=== PATIENT | male | born 1955 | race Caucasian/White ===

== ENCOUNTER 2024-10-15 20:44 | Inpatient (IN) | payer OTHER ==
[2024-10-16] MEDS ORDERED: Acetaminophen 325 MG TAB PO PRN (01:52)
[2024-10-16] MEDS ORDERED: Senokot S 8.6-50 MG TAB PO PRN (01:52)
[2024-10-16 02:13] VITALS: BMI 28.8
[2024-10-16] MEDS: predniSONE 20 MG TAB PO SCH (02:40)
[2024-10-16] MEDS: Lidocaine 2% Viscous Solution 10 ML, Aluminum & Magnesium Hydroxide 30 ML SSW SCH (02:41)
[2024-10-16] MEDS: Morphine 2 MG/ML VIAL SLOW IVP SCH (02:41)
[2024-10-16 04:35] LABS: #Basophils 0.02 10x3/uL (0.0-0.2); #Eosinophils 0.01 10x3/uL (0.0-0.5); #Monocytes 0.98 10x3/uL (0.0-1.1); %Basophils 0.2 % (0.0-2.0); %Eosinophils 0.1 % (0.0-6.0); %Lymphocytes 4.9 % (18.0-47.0); %Monocytes 9.5 % (0.0-10.0); %Neutrophils 84.8 % (40.0-75.0); Hemoglobin 13.4 g/dL (13.5-17.5); Mean Corpuscular HGB CONC 34.4 g/dL (32.0-36.0); Mean Corpuscular Hemoglobin 33.3 pg (27.0-33.0); Mean Corpuscular Volume 96.8 fL (81.2-95.1); Mean Platelet Volume 12.3 fL (7.4-10.4); Platelet Count 60 10x3/uL (150-450); RBC Distribution Width 14.3 % (11.5-14.5); Red Blood Cell (RBC) Count 4.03 10x6/uL (4.32-5.72); White Blood Cell (WBC) Count 10.2 10x3/uL (3.5-10.5)
[2024-10-16 04:44] LABS: Anion Gap 17 mmol/L (10-20); BUN (Urea Nitrogen) 23 mg/dL (8.4-25.7); Calc. Creatinine Clearance 53 mL/min (70-130); Calcium 8.9 mg/dL (7.8-10.44); Carbon Dioxide 18 mmol/L (23-31); Chloride 103 mmol/L (98-107); Estimated GFR 41; Glucose 124 mg/dL (80-115); Magnesium 1.7 mg/dL (1.6-2.6); Potassium 4.4 mmol/L (3.5-5.1); Sodium 134 mmol/L (136-145)
[2024-10-16] MEDS: Sodium Chloride 0.9% 500 ML IV SCH (06:29)
[2024-10-16] MEDS ORDERED: Furosemide 40 MG TAB PO SCH (07:30)
[2024-10-16] MEDS ORDERED: Spironolactone 25 MG TAB PO SCH (08:00)
[2024-10-16] MEDS: Mometasone 200 MCG/Formoterol 5 MCG 60 PUFF INHALER INH SCH (08:36)
[2024-10-16] MEDS: Pantoprazole DR 40 MG TAB PO SCH (08:57)
[2024-10-16] MEDS: Carvedilol 6.25 MG TAB PO SCH (08:57)
[2024-10-16] MEDS: Potassium Chloride 20 MEQ TAB PO SCH (08:57)
[2024-10-16] MEDS: Lactulose 20 GM (30 mL) UDCUP PO SCH (08:57)
[2024-10-16] MEDS: Oseltamivir 75 MG CAP PO SCH (08:57)
[2024-10-16] MEDS: Folic Acid 1 MG TAB PO SCH (08:58)
[2024-10-16] MEDS: traMADol HCl 50 MG TAB PO PRN (08:58)
[2024-10-16 11:40] LABS: Anion Gap 12 mmol/L (10-20); BUN (Urea Nitrogen) 27 mg/dL (8.4-25.7); Calc. Creatinine Clearance 56 mL/min (70-130); Calcium 8.6 mg/dL (7.8-10.44); Carbon Dioxide 22 mmol/L (23-31); Chloride 104 mmol/L (98-107); Estimated GFR 44; Glucose 181 mg/dL (80-115); Potassium 4.8 mmol/L (3.5-5.1); Sodium 133 mmol/L (136-145)
[2024-10-16] MEDS: ADMIXTURE FEE IVPB SCH (12:38)
[2024-10-16] MEDS: VANCOMYCIN IVPB SCH (12:38)
[2024-10-16] MEDS: SODIUM CHLORIDE IVPB SCH (12:38)
[2024-10-16] MEDS: Morphine 4 MG/ML VIAL SLOW IVP SCH (15:52)
[2024-10-16] MEDS: Cyclobenzaprine 10 MG TAB PO SCH (20:50)
[2024-10-16] MEDS: Calcium Carbonate 500 MG ChewTAB PO PRN (23:57)
[2024-10-17 04:26] LABS: Albumin 2.7 g/dL (3.4-4.8); Anion Gap 16 mmol/L (10-20); BUN (Urea Nitrogen) 38 mg/dL (8.4-25.7); BUN/Creatinine Ratio 24.36; Calc. Creatinine Clearance 60 mL/min (70-130); Calcium 9.3 mg/dL (7.8-10.44); Carbon Dioxide 21 mmol/L (23-31); Chloride 105 mmol/L (98-107); Estimated GFR 48; Glucose 126 mg/dL (80-115); Phosphorus 3.4 mg/dL (2.3-4.7); Potassium 4.8 mmol/L (3.5-5.1); Sodium 137 mmol/L (136-145)
[2024-10-17 04:27] LABS: #Basophils 0.02 10x3/uL (0.0-0.2); #Eosinophils 0.01 10x3/uL (0.0-0.5); #Monocytes 1.31 10x3/uL (0.0-1.1); #Neutrophils 7.09 10x3/uL (1.5-8.4); %Basophils 0.2 % (0.0-2.0); %Eosinophils 0.1 % (0.0-6.0); %Lymphocytes 8.4 % (18.0-47.0); %Monocytes 14.1 % (0.0-10.0); %Neutrophils 76.6 % (40.0-75.0); Hematocrit 34.3 % (38.8-50.0); Hemoglobin 11.7 g/dL (13.5-17.5); Mean Corpuscular HGB CONC 34.1 g/dL (32.0-36.0); Mean Corpuscular Hemoglobin 33.1 pg (27.0-33.0); Mean Corpuscular Volume 96.9 fL (81.2-95.1); Mean Platelet Volume 12.9 fL (7.4-10.4); Platelet Count 60 10x3/uL (150-450); RBC Distribution Width 14.1 % (11.5-14.5); Red Blood Cell (RBC) Count 3.54 10x6/uL (4.32-5.72); White Blood Cell (WBC) Count 9.3 10x3/uL (3.5-10.5)
[2024-10-17] MEDS ORDERED: VANCOMYCIN 1.25 GM/250 ML BAG 1.25 GM in Premix 1 BAG IVPB SCH (10:30)
[2024-10-17] MEDS: Morphine 4 MG/ML VIAL SLOW IVP SCH ×2 (10:37→13:06)
[2024-10-17] MEDS: Sodium Chloride 0.9% 500 ML IV SCH (10:44)
[2024-10-17] MEDS: Ondansetron PF 4 MG/2 ML Vial IVP PRN (10:44)
[2024-10-17] MEDS: Vancomycin 1 GM in Sodium Chloride 0.9% 250 ML 250 ML IVPB SCH (14:58)
[2024-10-17] MEDS: HYDROcodone/Acetaminophen 10/325 mg Tablet PO SCH (20:19)
[2024-10-18 04:19] LABS: Anion Gap 13 mmol/L (10-20); BUN (Urea Nitrogen) 39 mg/dL (8.4-25.7); Calc. Creatinine Clearance 76 mL/min (70-130); Calcium 8.9 mg/dL (7.8-10.44); Carbon Dioxide 19 mmol/L (23-31); Chloride 105 mmol/L (98-107); Estimated GFR 64; Glucose 95 mg/dL (80-115); Potassium 4.8 mmol/L (3.5-5.1); Sodium 132 mmol/L (136-145)
[2024-10-18 04:28] LABS: Vancomycin, Random 19.5 ug/mL (See Comment)
[2024-10-18 04:29] LABS: #Basophils 0.05 10x3/uL (0.0-0.2); #Eosinophils 0.16 10x3/uL (0.0-0.5); #Monocytes 1.36 10x3/uL (0.0-1.1); #Neutrophils 8.66 10x3/uL (1.5-8.4); %Basophils 0.4 % (0.0-2.0); %Eosinophils 1.4 % (0.0-6.0); %Lymphocytes 7.4 % (18.0-47.0); %Monocytes 12.2 % (0.0-10.0); %Neutrophils 77.8 % (40.0-75.0); Hematocrit 36.2 % (38.8-50.0); Hemoglobin 12.2 g/dL (13.5-17.5); Mean Corpuscular HGB CONC 33.7 g/dL (32.0-36.0); Mean Corpuscular Hemoglobin 32.8 pg (27.0-33.0); Mean Corpuscular Volume 97.3 fL (81.2-95.1); Red Blood Cell (RBC) Count 3.72 10x6/uL (4.32-5.72); White Blood Cell (WBC) Count 11.2 10x3/uL (3.5-10.5)
[2024-10-18] MEDS: Benzonatate 100 MG CAP PO PRN (04:47)
[2024-10-18 05:03] LABS: Mean Platelet Volume 12.4 fL (7.4-10.4); Platelet Count 63 10x3/uL (150-450)
[2024-10-18] MEDS: Ipratropium/Albuterol 3 ML NEB NEB PRN (09:18)
[2024-10-18] MEDS: Morphine 4 MG/ML VIAL SLOW IVP SCH (13:01)
[2024-10-18] MEDS: Methocarbamol 500 MG TAB PO SCH (15:01)
[2024-10-18] MEDS: VANCOMYCIN 1.25 GM/250 ML BAG 1.25 GM in Premix 1 BAG IVPB SCH (15:01)
[2024-10-18] MEDS: Famotidine 20 MG TAB PO PRN (20:49)
[2024-10-18] MEDS: traMADol HCl 50 MG TAB PO PRN (20:51)
[2024-10-19 04:47] LABS: Anion Gap 13 mmol/L (10-20); BUN (Urea Nitrogen) 30 mg/dL (8.4-25.7); Calc. Creatinine Clearance 78 mL/min (70-130); Calcium 8.6 mg/dL (7.8-10.44); Carbon Dioxide 21 mmol/L (23-31); Chloride 104 mmol/L (98-107); Estimated GFR 66; Glucose 90 mg/dL (80-115); Potassium 4.7 mmol/L (3.5-5.1); Sodium 133 mmol/L (136-145)
[2024-10-19 04:54] LABS: #Basophils 0.06 10x3/uL (0.0-0.2); #Eosinophils 0.17 10x3/uL (0.0-0.5); #Monocytes 1.52 10x3/uL (0.0-1.1); #Neutrophils 7.13 10x3/uL (1.5-8.4); %Basophils 0.6 % (0.0-2.0); %Eosinophils 1.7 % (0.0-6.0); %Lymphocytes 10.2 % (18.0-47.0); %Monocytes 15.1 % (0.0-10.0); %Neutrophils 70.7 % (40.0-75.0); Hemoglobin 11.8 g/dL (13.5-17.5); Mean Corpuscular HGB CONC 34.7 g/dL (32.0-36.0); Mean Corpuscular Hemoglobin 32.7 pg (27.0-33.0); Mean Corpuscular Volume 94.2 fL (81.2-95.1); Mean Platelet Volume 12.2 fL (7.4-10.4); Platelet Count 64 10x3/uL (150-450); RBC Distribution Width 13.8 % (11.5-14.5); Red Blood Cell (RBC) Count 3.61 10x6/uL (4.32-5.72); White Blood Cell (WBC) Count 10.1 10x3/uL (3.5-10.5)
[2024-10-19] MEDS: Ketorolac Tromethamine 30 MG (1 mL) VIAL IVP SCH (05:55)
[2024-10-19] MEDS ORDERED: Magnevist 469MG/ML 20 ML VIAL ONE ×2 (10:11)
[2024-10-19] MEDS: Morphine 4 MG/ML VIAL SLOW IVP SCH (15:48)
[2024-10-19 16:19] VITALS: BP 149/72; TEMP 97.4
== END 2024-10-19 19:09 | disposition still patient (30) | DRG 871 ==
LOC: EEVIPCON 10-16 01:22 → CSHTELE 10-16 01:22 → OBSVTOIN 10-16 11:25
PROVIDERS: ADMIT Student in an Organized Health Care Education/Training Program; ATTEND Internal Medicine
DX: A41.02 Sepsis due to Methicillin resistant Staphylococcus aureus (principal); J10.08 Influenza due to other identified influenza virus with other specified pneumonia; J96.01 Acute respiratory failure with hypoxia; J15.212 Pneumonia due to Methicillin resistant Staphylococcus aureus; K76.6 Portal hypertension; A18.01 Tuberculosis of spine; E87.20 Acidosis, unspecified; J90 Pleural effusion, not elsewhere classified; J45.909 Unspecified asthma, uncomplicated; I11.0 Hypertensive heart disease with heart failure; I50.9 Heart failure, unspecified; K74.60 Unspecified cirrhosis of liver; K21.9 Gastro-esophageal reflux disease without esophagitis; D69.59 Other secondary thrombocytopenia; Z86.19 Personal history of other infectious and parasitic diseases; Z79.899 Other long term (current) drug therapy
CPT/HCPCS: 36415; 71250; 72157; 72158; 80048; 80069; 80202; 83735; 85025; 87040; 87077; 87149; 87186; 93306; 94640; 94664; 94760; 94762; 96374; G0378; J1885; J2272; J2405; J3370; J7030; J7050; J7512; J7620

== ENCOUNTER 2024-10-30 13:21 | Emergency (ER) | payer OTHER ==
[2024-10-30] MEDS ORDERED: Cefepime 2 GM VIAL ONE (13:44)
[2024-10-30] MEDS ORDERED: Ondansetron PF 4 MG/2 ML Vial ONE (13:44)
[2024-10-30] MEDS ORDERED: Morphine 4 MG/ML VIAL ONE ×2 (13:44→14:32)
[2024-10-30] MEDS ORDERED: Vancomycin 2.5 GM in Sodium Chloride 0.9% 500 ML IVPB SCH (14:00)
[2024-10-30 14:03] LABS: #Basophils 0.12 10x3/uL (0.0-0.2); #Eosinophils 0.18 10x3/uL (0.0-0.5); #Monocytes 1.15 10x3/uL (0.0-1.1); #Neutrophils 7.82 10x3/uL (1.5-8.4); %Basophils 1.1 % (0.0-2.0); %Eosinophils 1.7 % (0.0-6.0); %Lymphocytes 12.2 % (18.0-47.0); %Monocytes 10.8 % (0.0-10.0); %Neutrophils 73.7 % (40.0-75.0); Hematocrit 37.7 % (38.8-50.0); Hemoglobin 12.7 g/dL (13.5-17.5); Mean Corpuscular HGB CONC 33.7 g/dL (32.0-36.0); Mean Corpuscular Hemoglobin 31.4 pg (27.0-33.0); Mean Corpuscular Volume 93.1 fL (81.2-95.1); Mean Platelet Volume 10.5 fL (7.4-10.4); Platelet Count 219 10x3/uL (150-450); RBC Distribution Width 13.1 % (11.5-14.5); Red Blood Cell (RBC) Count 4.05 10x6/uL (4.32-5.72); White Blood Cell (WBC) Count 10.6 10x3/uL (3.5-10.5)
[2024-10-30 14:13] LABS: INR-International Normal Ratio 1.3; PTT 38.9 sec (22.0-33.0); Prothrombin Time 13.5 sec (9.5-12.1)
[2024-10-30 14:16] LABS: ALT (SGPT) 29 U/L (8-55); AST (SGOT) 41 U/L (5-34); Albumin 3.7 g/dL (3.4-4.8); Alkaline Phosphatase 112 U/L (40-110); Anion Gap 18 mmol/L (10-20); BUN (Urea Nitrogen) 22 mg/dL (8.4-25.7); Bilirubin, Total 1.3 mg/dL (0.2-1.2); CK (CPK) 132 U/L (30-200); Calc. Creatinine Clearance 0 mL/min (70-130); Calcium 9.3 mg/dL (7.8-10.44); Carbon Dioxide 18 mmol/L (23-31); Chloride 105 mmol/L (98-107); Estimated GFR 51; Globulin 3.4 g/dL (2.4-3.5); Glucose 95 mg/dL (80-115); Protein, Total 7.1 g/dL (5.8-8.1); Sodium 136 mmol/L (136-145)
== END 2024-10-30 19:30 | disposition short-term general hospital (02) ==
LOC: CSHERS 13:21 → EEVIPCON 13:21 → CSHERS 19:30
DX: M46.47 Discitis, unspecified, lumbosacral region (principal); D72.829 Elevated white blood cell count, unspecified; I11.0 Hypertensive heart disease with heart failure; I50.9 Heart failure, unspecified; J44.89 Other specified chronic obstructive pulmonary disease; Z75.3 Unavailability and inaccessibility of health-care facilities; Z79.51 Long term (current) use of inhaled steroids; Z79.899 Other long term (current) drug therapy
CPT/HCPCS: 36415; 80053; 82550; 83605; 84145; 85025; 85610; 85730; 87040; 93005; J0692; J2272; J2405; J3370; J7030